=== PATIENT | female | born 1980 | race Caucasian/White ===

== ENCOUNTER → 2018-01-07 | Outpatient (CLI) | payer MEDICAID, OTHER ==
[~2018-01-07] MED LIST: BENA25CA4 PO; HYDR-3583 PO
[2018-01-07 11:06] LABS: AUTOMATED NEUTROPHIL # 4.7 TH/MM3 (1.8-7.7); BASOPHIL # 0.1 TH/MM3 (0-0.2); BASOPHIL % 0.7 % (0.0-2.0); EOSINOPHIL # 0.2 TH/MM3 (0-0.4); EOSINOPHIL % 2.1 % (0.0-4.0); HEMATOCRIT 44.4 % (35.0-46.0); LYMPH % 27.7 % (9.0-44.0); LYMPHOCYTE # 2.1 TH/MM3 (1.0-4.8); MEAN CELL VOLUME 89.3 FL (80.0-100.0); MEAN CORPUSCULAR HEMOGLOBIN 30.2 PG (27.0-34.0); MEAN CORPUSCULAR HGB CONC 33.8 % (32.0-36.0); MEAN PLATELET VOLUME 8.5 FL (7.0-11.0); MONO % 7.9 % (0.0-8.0); MONOCYTE # 0.6 TH/MM3 (0-0.9); NEUT % 61.6 % (16.0-70.0); PLATELET COUNT 336 TH/MM3 (150-450); RED BLOOD COUNT 4.98 MIL/MM3 (4.00-5.30); RED CELL DISTRIBUTION WIDTH 12.7 % (11.6-17.2); WHITE BLOOD COUNT 7.6 TH/MM3 (4.0-11.0)
[2018-01-07 11:12] LABS: PROTHROMBIN TIME - PATIENT 10.5 SEC (9.8-11.6)
[2018-01-07 11:37] LABS: ALBUMIN 3.8 GM/DL (3.4-5.0); ALT (GPT) 34 U/L (10-53); AST (GOT) 22 U/L (15-37); BICARBONATE 30.3 MEQ/L (21.0-32.0); BLOOD UREA NITROGEN 11 MG/DL (7-18); CALCIUM 8.8 MG/DL (8.5-10.1); CHLORIDE 106 MEQ/L (98-107); CREATININE 0.94 MG/DL (0.50-1.00); GLOMERULAR FILTRATION RATE 68 ML/MIN (>89); GLUCOSE,FASTING 71 MG/DL (74-99); SODIUM (NA) 142 MEQ/L (136-145)
[2018-01-07 11:54] LABS: ALKALINE PHOSPHATASE 45 U/L (45-117); TOTAL BILIRUBIN ADULT 0.4 MG/DL (0.2-1.0)
== END ==
LOC: CPRE 09:55
PROVIDERS: ATTEND Urology
DX: Z01.812 Encounter for preprocedural laboratory examination (principal); N28.89 Other specified disorders of kidney and ureter
CPT/HCPCS: 36415; 80053; 85025; 85610; 85730

== ENCOUNTER 2018-01-14 05:56 | Inpatient (IN) | payer MEDICAID ==
[2018-01-14] VITALS (7 sets, daily range): PULSE 73–84; O2SAT 96–100
[~2018-01-14] VITALS: Ht 170.2 cm; Wt 82.7 kg
[2018-01-14] MEDS ORDERED: METOPROLOL TARTRATE 25 MG TAB PO PRN (06:30)
[2018-01-14] MEDS ORDERED: LACTATED RINGER'S 1000 ML IV PRN (06:30)
[2018-01-14] MEDS ORDERED: POVIDONE IODINE 5% (ANTISEPSIS KIT) 4 APPLICATIONS EACH NARE PRN (06:30)
[2018-01-14] MEDS ORDERED: ceFAZolin 1,000 MG/NS 100 ML IV SCH ×2 (06:30)
[2018-01-14] MEDS ORDERED: SODIUM CHLORID 0.9% 500 ML IV PRN (06:30)
[2018-01-14] MEDS ORDERED: CHLORHEXIDINE GLUCONATE 2 % 1 PACK (2 CLOTHS) TOPICAL PRN (06:30)
[2018-01-14] MEDS ORDERED: HYDROmorphone HCL PF 2 MG/ML VIAL ONE (06:40)
[2018-01-14] MEDS ORDERED: ACETAMINOPHEN 1000 MG/100 ML 100 ML IV ONE (06:40)
[2018-01-14] MEDS ORDERED: BACITRACIN TOP OINT 15 GM TUBE ONE (07:17)
[2018-01-14] MEDS ORDERED: MANNITOL INJ 50 ML ONE ×2 (07:17→09:00)
[2018-01-14] MEDS ORDERED: APREPITANT 40 MG CAP ONE (07:51)
[2018-01-14] MEDS ORDERED: LIDOCAINE 2%/EPINEPHrine PF 1:200,000 20ML SDV ONE (08:04)
[2018-01-14] MEDS ORDERED: fentaNYL 2MCG-BUPIV 0.125% INJ 100 ML ONE (09:21)
[2018-01-14] MEDS ORDERED: BUPIVACAINE HCL PF 0.25% 30 ML VIAL ONE (09:36)
[2018-01-14] MEDS ORDERED: DO NOT ADM ANY ANTICOAGULANT DRUGS PRN (11:43)
[2018-01-14] MEDS ORDERED: ACETAMINOPHEN 650 MG/20.3 ML UDC PO PRN (11:45)
[2018-01-14] MEDS ORDERED: MORPHINE SULFATE 4 MG/ML INJ IV PUSH PRN (11:45)
[2018-01-14] MEDS ORDERED: RESP: ALBUTEROL 2.5 MG/3 ML NEB (PRN) NEB (11:45)
[2018-01-14] MEDS: fentaNYL 2MCG-BUPIV 0.125% 100 ML EPIDURAL PRN ×2 (11:50→21:15)
--- NOTE | 2018-01-14 11:51 | PD.OP ---
Operative Report Date of Surgery: January 14, 2018 Preoperative Diagnosis: Left renal mass Postoperative Diagnosis: Same Procedure: Left partial nephrectomy Anesthesia: FRANKLYN Surgeon: Clifton Aleman Research Food Technologist(s): Dr. Kar Lagunas Resident Surgeon: None Operation and Findings: 37-year-old female with findings of a 2 cm left renal mass on an MRI scan recently. The plan for is for the patient undergo left partial nephrectomy. Risk and benefits were discussed preoperatively and she is willing to proceed. Patient was brought to operating identified by myself as Shakira Jiménez. She was placed on the operating table in the left lateral recumbent position with the beanbag placed underneath the patient. All appropriate padding was placed and the table was flexed with the kidney rest elevated. She was secured with tape as well as a safety belt. A Roque catheter was inserted in the beginning procedure. She was then prepped and draped in usual sterile fashion and received preprocedure antibiotics. General endotracheal tube anesthesia was administered. 15 blade was used to make the opening incision extending from the tip of the 11th rib, medial towards the umbilicus. Errol's and Camper's fascia were then entered as well as the transversalis fascia. Care was taken not to enter the peritoneal cavity. The left kidney was palpated after exposing Gerota's fascia and using my index failure I was able to separate the fat and identified the left kidney. Careful dissection using the Bovie cautery was then utilized around the fat surrounding the entire kidney. This was removed circumferentially until all the surrounding attachments around the kidney were free. The hilum where the vessels were was identified and using a right angle forceps this area was then dissected until the artery and vein was freed up. Vessel loops were placed around both artery and vein. 2 renal arteries were identified as well as 2 renal vein. The tumor was identified on the lateral surface of the upper pole and was exophytic in nature. The area around the tumor was then scored using the Bovie cautery. Bulldog clamps were placed on both the artery and the vein. Using a 15 blade and a long handle, the tumor was cut away from the kidney. Gross margins appeared to be negative. This was then sent to pathology. 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 The Bovie cautery was used to fulgurate areas of bleeding within the prior tumor bed site. 4-0 chromic suture was then used to close any areas of bleeding in the bed of the tumor site. Fibular was then placed into the tumor bed site and the kidney was then closed using 3-0 chromic suture in a clamshell fashion. The clamps were all removed after the kidney was closed. Clamp time was from 10:38 to 10:37 AM for a total of 19 minutes. The fossa was then irrigated with normal saline and then a MOE drain was placed next to the kidney. The wound was then closed with a looped PDS in a running fashion and the skin was then closed with chao. The patient was awoken and extubated and transferred recovery in stable condition. Blood loss was 100 cc. She tolerated the procedure well and there were no complications. Clifton Aleman DO January 14, 2018 11:51
[2018-01-14] MEDS: LACTATED RINGER'S 1000 ML INJ 1,000 ML IV SCH ×2 (12:27→21:20)
[2018-01-14] MEDS ORDERED: NO SYSTEM NARCOTICS PRN (12:30)
[2018-01-14] MEDS ORDERED: ePHEDrine/NS 25 MG/5 ML SYRINGE IV PUSH PRN (12:30)
[2018-01-14] MEDS ORDERED: DO NOT ADMINISTER ANTICOAGULANTS PRN (12:30)
[2018-01-14 12:39] LABS: HEMOGLOBIN 13.7 GM/DL (11.6-15.3); MEAN CELL VOLUME 86.9 FL (80.0-100.0); MEAN CORPUSCULAR HEMOGLOBIN 29.7 PG (27.0-34.0); MEAN CORPUSCULAR HGB CONC 34.1 % (32.0-36.0); MEAN PLATELET VOLUME 8.4 FL (7.0-11.0); PLATELET COUNT 276 TH/MM3 (150-450); RED CELL DISTRIBUTION WIDTH 12.6 % (11.6-17.2); WHITE BLOOD COUNT 17.5 TH/MM3 (4.0-11.0)
[2018-01-14 12:59] LABS: BICARBONATE 21.3 MEQ/L (21.0-32.0); CALCIUM 7.9 MG/DL (8.5-10.1); CREATININE 0.94 MG/DL (0.50-1.00)
[2018-01-14] MEDS ORDERED: MIDAZOLAM HCL 2 MG/2 ML VIAL ONE (13:08)
[2018-01-14] MEDS ORDERED: LIDOCAINE HCL 2% 20 ML VIAL ONE (14:05)
[2018-01-15] VITALS (13 sets, daily range): BP systolic 107–121; BP diastolic 58–65; PULSE 74–94; RESP 15–28; TEMP 97.9–99.2; O2SAT 94–96
[2018-01-15] MEDS: fentaNYL 2MCG-BUPIV 0.125% 100 ML EPIDURAL PRN ×3 (03:43→22:01)
[2018-01-15] MEDS: LACTATED RINGER'S 1000 ML INJ 1,000 ML IV SCH ×3 (03:45→23:25)
[2018-01-15 06:38] LABS: HEMATOCRIT 36.6 % (35.0-46.0); HEMOGLOBIN 12.3 GM/DL (11.6-15.3); MEAN CELL VOLUME 88.9 FL (80.0-100.0); MEAN CORPUSCULAR HGB CONC 33.7 % (32.0-36.0); MEAN PLATELET VOLUME 8.7 FL (7.0-11.0); PLATELET COUNT 237 TH/MM3 (150-450); RED BLOOD COUNT 4.11 MIL/MM3 (4.00-5.30); RED CELL DISTRIBUTION WIDTH 12.6 % (11.6-17.2); WHITE BLOOD COUNT 9.8 TH/MM3 (4.0-11.0)
[2018-01-15 07:07] LABS: BICARBONATE 26.4 MEQ/L (21.0-32.0); CREATININE 0.87 MG/DL (0.50-1.00)
--- NOTE | 2018-01-15 08:19 | HHI.PR ---
Subjective Patient symptoms today Pt seen and examined. Pain controlled with epidural. Objective Vital Signs Vital Signs Date Time Temp Pulse Resp B/P (MAP) Pulse Ox O2 Delivery O2 Flow Rate FiO2 01/15/18 07:00 95 Room Air 01/15/18 06:00 78 01/15/18 04:00 82 01/15/18 03:43 19 01/15/18 02:00 80 01/15/18 00:00 80 01/14/18 22:10 96 21 01/14/18 22:00 84 01/14/18 21:15 18 01/14/18 20:00 82 01/14/18 19:00 97 Room Air 01/14/18 18:00 74 01/14/18 16:10 100 Nasal Cannula 2.00 01/14/18 16:00 75 01/14/18 14:00 100 Nasal Cannula 2.00 01/14/18 14:00 73 01/14/18 12:55 98.6 77 14 117/62 (80) 99 Nasal Cannula 2 01/14/18 12:45 78 17 115/55 (75) 100 Nasal Cannula 2 01/14/18 12:30 73 15 111/55 (73) 100 Nasal Cannula 2 01/14/18 12:15 75 19 112/56 (74) 99 Nasal Cannula 2 01/14/18 12:00 74 14 114/56 (75) 99 Nasal Cannula 2 01/14/18 11:50 97.9 94 13 107/54 (71) 97 Nasal Cannula 2 01/14/18 11:50 15 Intake & Output 01/15/18 01/15/18 07:00 19:00 Output Total 1385 ml Balance -1385 ml Output Urine Total 1350 ml Drainage Total 35 ml Result Diagram: 01/15/1858 01/15/1858 Objective Remarks Abd:soft,nt,nd Dressing intact MOE: minimal drainage of 30cc Urine clear Medications and IVs Current Medications Medications (Trade) Dose Ordered Sig/Nathan Route Start Time Stop Time Status Last Admin Lactated Ringer's 1,000 ml @ 30 mls/hr Q24H PRN IV 01/14/18 06:30 01/17/18 06:29 01/14/18 06:15 Sodium Chloride 500 ml @ 30 mls/hr [id number] PRN IV 01/14/18 06:30 01/17/18 06:29 (Lopressor) 25 mg MOLD ENGRAVER PRN PO 01/14/18 06:30 01/17/18 06:29 (Betadine 5% Antisepsis Kit) 1 applic MOLD ENGRAVER PRN EACH NARE 01/14/18 06:30 01/17/18 06:29 01/14/18 06:30 (Chlorhexidine 2% Cloth) 3 pack MOLD ENGRAVER PRN TOPICAL 01/14/18 06:30 01/17/18 06:29 01/14/18 06:15 Cefazolin Sodium 1000 mg/Sodium Chloride 100 ml @ 200 mls/hr Q8H IV 01/14/18 16:00 01/15/18 08:29 01/14/18 23:52 (Tylenol 650 Mg/ 20 ml Liq) 650 mg Q6H PRN PO 01/14/18 11:45 (Percocet 7.5-325 Mg) 1 tab Q4H PRN PO 01/14/18 11:45 Lactated Ringer's 1,000 ml @ 125 mls/hr Q8H IV 01/14/18 11:45 01/14/18 21:20 (Albuterol Neb) 2.5 mg Q6HR NEB PRN NEB 01/14/18 11:45 (Benadryl Inj) 50 mg Q4H PRN IV PUSH 01/14/18 11:45 (Lovenox Inj) 30 mg Q24H SQ 01/15/18 09:00 ([facility] [place] Nursing Information) ALL NURSING DEPARTME... UNSCH PRN .XX 01/14/18 11:43 01/15/18 11:42 ([facility] [place] Nursing Information) No systemic narcotics to be given except... UNSCH PRN .XX 01/14/18 12:30 01/15/18 12:29 ([facility] [place] Nursing Information) DO NOT ADMINISTER ANY ANTICOAGUL... UNSCH PRN .XX 01/14/18 12:30 01/15/18 12:29 Fentanyl/ Bupivacaine HCl 100 ml @ 0 mls/hr TITRATE PRN EPIDURAL 01/14/18 12:30 01/15/18 03:43 (ePHEDrine/NS 25 MG/5 ML SYR) 10 mg UNSCH PRN IV PUSH 01/14/18 12:30 5/23/18 12:29 (Dilaudid Pf Inj) 2 mg Q4H PRN IV 01/14/18 14:30 Assessment and Plan Assessment and Plan Stable POD# 1 s/p Left Partial Nephrectomy Maintain epidural today and will remove tomorrow AM Encourage I/S Clifton Aleman DO January 15, 2018 08:19
[2018-01-15] MEDS ORDERED: ENOXAPARIN SODIUM 30 MG/0.3 ML SYRINGE SQ SCH (09:00)
[2018-01-16] VITALS (12 sets, daily range): BP systolic 115–123; BP diastolic 56–62; PULSE 76–94; RESP 21–24; TEMP 98–98.5; O2SAT 94–97
[2018-01-16] MEDS: fentaNYL 2MCG-BUPIV 0.125% 100 ML EPIDURAL PRN (05:28)
[2018-01-16] MEDS: HYDROmorphone HCL PF 2 MG/ML VIAL IV PRN ×4 (08:21→21:10)
[2018-01-16] MEDS: LACTATED RINGER'S 1000 ML INJ 1,000 ML IV SCH ×2 (08:36→18:36)
--- NOTE | 2018-01-16 08:45 | HHI.PR ---
Subjective Patient symptoms today Pt seen and examined. Feels well. Some pain. Objective Vital Signs Vital Signs Date Time Temp Pulse Resp B/P (MAP) Pulse Ox O2 Delivery O2 Flow Rate FiO2 01/16/18 06:00 84 01/16/18 05:28 22 01/16/18 04:00 82 01/16/18 04:00 98.4 82 21 123/62 (82) 94 01/16/18 02:00 84 01/16/18 00:00 88 01/16/18 00:00 98.5 94 23 119/62 (81) 94 01/15/18 22:01 22 01/15/18 22:00 94 01/15/18 20:00 99.0 90 28 121/65 (83) 94 01/15/18 20:00 92 01/15/18 19:00 94 Room Air 01/15/18 18:00 79 01/15/18 16:00 99.2 80 19 107/58 (74) 96 01/15/18 16:00 80 01/15/18 14:00 79 01/15/18 12:35 17 01/15/18 12:00 97.9 78 15 112/59 (76) 95 01/15/18 12:00 74 01/15/18 10:00 78 Intake & Output 01/16/18 01/16/18 07:00 19:00 Output Total 1125 ml Balance -1125 ml Output Urine Total 1100 ml Drainage Total 25 ml Result Diagram: 01/15/18 0558 01/15/18 0558 Objective Remarks Abd:soft,nt,nd Dressing intact MOE: minimal drainage of 30cc Urine clear 01/16 Abd:soft,nt,nd Dressing intact MOE: minimal drainage of 30cc Urine clear Medications and IVs Current Medications Medications (Trade) Dose Ordered Sig/Nathan Route Start Time Stop Time Status Last Admin Lactated Ringer's 1,000 ml @ 30 mls/hr Q24H PRN IV 01/14/18 06:30 01/17/18 06:29 01/14/18 06:15 Sodium Chloride 500 ml @ 30 mls/hr [id number] PRN IV 01/14/18 06:30 01/17/18 06:29 (Lopressor) 25 mg MANPOWER DEVELOPMENT SPECIALIST PRN PO 01/14/18 06:30 01/17/18 06:29 (Betadine 5% Antisepsis Kit) 1 applic MANPOWER DEVELOPMENT SPECIALIST PRN EACH NARE 01/14/18 06:30 01/17/18 06:29 01/14/18 06:30 (Chlorhexidine 2% Cloth) 3 pack MANPOWER DEVELOPMENT SPECIALIST PRN TOPICAL 01/14/18 06:30 01/17/18 06:29 01/14/18 06:15 (Tylenol 650 Mg/ 20 ml Liq) 650 mg Q6H PRN PO 01/14/18 11:45 (Percocet 7.5-325 Mg) 1 tab Q4H PRN PO 01/14/18 11:45 Lactated Ringer's 1,000 ml @ 100 mls/hr Q10H IV 01/14/18 11:45 01/15/18 23:25 (Albuterol Neb) 2.5 mg Q6HR NEB PRN NEB 01/14/18 11:45 (Benadryl Inj) 50 mg Q4H PRN IV PUSH 01/14/18 11:45 (Lovenox Inj) 30 mg Q24H SQ 01/15/18 09:00 Future Hold 01/15/18 08:18 (Dilaudid Pf Inj) 2 mg Q4H PRN IV 01/14/18 14:30 01/16/18 08:21 Fentanyl/ Bupivacaine/ Sodium Chlor 150 ml @ 0 mls/hr TITRATE PRN EPIDURAL 01/15/18 11:30 01/16/18 05:28 Assessment and Plan Assessment and Plan Stable POD# 1 s/p Left Partial Nephrectomy Maintain epidural today and will remove tomorrow AM Encourage I/S 01/16 Stable POD# 2 s/p Left Partial Nephrectomy Anesthesia to remove epidural catheter today OOB Encourage I/S Clifton Aleman DO January 16, 2018 08:45
[2018-01-16] MEDS: oxyCODONE/ACETAMINOPHEN 7.5 MG/325 MG TAB PO PRN ×4 (10:58→23:48)
[2018-01-16] MEDS: diphenhydrAMINE HCL 50 MG/ML VIAL IV PUSH PRN (21:09)
[2018-01-17] VITALS (9 sets, daily range): BP systolic 110–127; BP diastolic 55–69; PULSE 75–98; RESP 16–20; TEMP 97.9–98.9; O2SAT 95–97
[2018-01-17] MEDS: HYDROmorphone HCL PF 2 MG/ML VIAL IV PRN ×5 (01:09→23:21)
[2018-01-17] MEDS: diphenhydrAMINE HCL 50 MG/ML VIAL IV PUSH PRN ×2 (01:09→23:21)
[2018-01-17] MEDS: LACTATED RINGER'S 1000 ML INJ 1,000 ML IV SCH ×3 (03:16→21:00)
[2018-01-17] MEDS: oxyCODONE/ACETAMINOPHEN 7.5 MG/325 MG TAB PO PRN ×3 (03:57→19:56)
--- NOTE | 2018-01-17 09:59 | HHI.PR ---
Subjective Patient symptoms today Pt seen and examined. c/o incision pain. Objective Vital Signs Vital Signs Date Time Temp Pulse Resp B/P (MAP) Pulse Ox O2 Delivery O2 Flow Rate FiO2 01/17/18 08:00 85 01/17/18 08:00 98.3 87 20 127/59 (81) 96 01/17/18 07:00 97 Nasal Cannula 2.00 01/17/18 06:00 81 01/17/18 04:00 76 01/17/18 04:00 98.1 75 16 118/66 (83) 97 01/17/18 02:00 77 01/17/18 00:00 81 01/17/18 00:00 97.9 86 17 110/69 (83) 96 01/16/18 22:00 76 01/16/18 20:21 18 01/16/18 20:00 98.0 84 24 115/56 (75) 97 01/16/18 20:00 87 01/16/18 20:00 Room Air 01/16/18 18:00 84 01/16/18 17:30 18 01/16/18 16:00 82 01/16/18 15:00 84 01/16/18 12:00 82 01/16/18 10:00 84 Intake & Output 01/17/18 01/17/18 07:00 19:00 Intake Total 620 ml Output Total 2325 ml Balance -1705 ml Intake Oral 620 ml Output Urine Total 2300 ml Drainage Total 25 ml # Bowel Movements 0 Result Diagram: 01/15/18 0558 01/15/18 0558 Objective Remarks Abd:soft,nt,nd Dressing intact MOE: minimal drainage of 30cc Urine clear 01/16 Abd:soft,nt,nd Dressing intact MOE: minimal drainage of 30cc Urine clear 01/17 Abd:soft,distended, incisional tenderness Roque: clear urine MOE: minimal drainage Medications and IVs Current Medications Medications (Trade) Dose Ordered Sig/Nathan Route Start Time Stop Time Status Last Admin (Tylenol 650 Mg/ 20 ml Liq) 650 mg Q6H PRN PO 01/14/18 11:45 (Percocet 7.5-325 Mg) 1 tab Q4H PRN PO 01/14/18 11:45 01/17/18 08:23 Lactated Ringer's 1,000 ml @ 100 mls/hr Q10H IV 01/14/18 11:45 01/17/18 03:16 (Albuterol Neb) 2.5 mg Q6HR NEB PRN NEB 01/14/18 11:45 (Benadryl Inj) 50 mg Q4H PRN IV PUSH 01/14/18 11:45 01/17/18 01:09 (Lovenox Inj) 30 mg Q24H SQ 01/15/18 09:00 Future Hold 01/15/18 08:18 (Dilaudid Pf Inj) 2 mg Q4H PRN IV 01/14/18 14:30 01/17/18 06:17 Fentanyl/ Bupivacaine/ Sodium Chlor 150 ml @ 0 mls/hr TITRATE PRN EPIDURAL 01/15/18 11:30 01/16/18 05:28 Assessment and Plan Assessment and Plan Stable POD# 1 s/p Left Partial Nephrectomy Maintain epidural today and will remove tomorrow AM Encourage I/S 01/16 Stable POD# 2 s/p Left Partial Nephrectomy Anesthesia to remove epidural catheter today OOB Encourage I/S 01/17 Stable POD#3 Left PN Path: RCC with neg. margins OOB/Ambulate Clifton Aleman DO January 17, 2018 09:58
[2018-01-18] VITALS: BP 117/56; PULSE 82; PULSE 84; RESP 17; TEMP 98; O2SAT 95
[2018-01-18] MEDS: oxyCODONE/ACETAMINOPHEN 7.5 MG/325 MG TAB PO PRN ×2 (03:55→16:49)
[2018-01-18 04:00] VITALS: BP 120/57; PULSE 80; PULSE 88; RESP 20; TEMP 98.4; O2SAT 97
[2018-01-18 08:00] VITALS: BP 122/58; PULSE 66; RESP 18; TEMP 98.1; O2SAT 92
[2018-01-18] MEDS: HYDROmorphone HCL PF 2 MG/ML VIAL IV PRN ×3 (08:00→20:55)
[2018-01-18] MEDS: LACTATED RINGER'S 1000 ML INJ 1,000 ML IV SCH ×2 (10:36→20:36)
--- NOTE | 2018-01-18 10:43 | HHI.PR ---
Subjective Patient symptoms today Pt seen and examined. Feels better. Pain improved. Objective Vital Signs Vital Signs Date Time Temp Pulse Resp B/P (MAP) Pulse Ox O2 Delivery O2 Flow Rate FiO2 01/18/18 08:00 98.1 66 18 122/58 (79) 92 01/18/18 04:00 80 01/18/18 04:00 98.4 88 20 120/57 (78) 97 01/18/18 00:00 98.0 82 17 117/56 (76) 95 01/18/18 00:00 84 01/17/18 20:00 Room Air 01/17/18 20:00 85 01/17/18 20:00 98.9 88 20 117/55 (75) 95 01/17/18 16:00 98.4 90 18 117/60 (79) 96 01/17/18 16:00 92 01/17/18 12:00 98 01/17/18 12:00 98.2 92 20 121/59 (79) 96 Intake & Output 01/18/18 01/18/18 07:00 19:00 Intake Total 2337 ml 150 ml Output Total 0 ml Balance 2337 ml 150 ml Intake Oral 480 ml IV Total 1857 ml 150 ml Drainage Total 0 ml # Voids 5 # Bowel Movements 0 Result Diagram: 01/15/1855701/15/18557 Objective Remarks Abd:soft,nt,nd Dressing intact MOE: minimal drainage of 30cc Urine clear 01/16 Abd:soft,nt,nd Dressing intact MOE: minimal drainage of 30cc Urine clear 01/17 Abd:soft,distended, incisional tenderness Roque: clear urine MOE: minimal drainage 01/18 Abd:soft,nt,nd MOE removed Voiding well Medications and IVs Current Medications Medications (Trade) Dose Ordered Sig/Nathan Route Start Time Stop Time Status Last Admin (Tylenol 650 Mg/ 20 ml Liq) 650 mg Q6H PRN PO 01/14/18 11:45 01/17/18 11:25 (Percocet 7.5-325 Mg) 1 tab Q4H PRN PO 01/14/18 11:45 01/18/18 03:55 Lactated Ringer's 1,000 ml @ 100 mls/hr Q10H IV 01/14/18 11:45 01/17/18 21:00 (Albuterol Neb) 2.5 mg Q6HR NEB PRN NEB 01/14/18 11:45 (Benadryl Inj) 50 mg Q4H PRN IV PUSH 01/14/18 11:45 01/17/18 23:21 (Lovenox Inj) 30 mg Q24H SQ 01/15/18 09:00 Future Hold 01/15/18 08:18 (Dilaudid Pf Inj) 2 mg Q4H PRN IV 01/14/18 14:30 01/18/18 08:00 Fentanyl/ Bupivacaine/ Sodium Chlor 150 ml @ 0 mls/hr TITRATE PRN EPIDURAL 01/15/18 11:30 01/16/18 05:28 Assessment and Plan Assessment and Plan Stable POD# 1 s/p Left Partial Nephrectomy Maintain epidural today and will remove tomorrow AM Encourage I/S 01/16 Stable POD# 2 s/p Left Partial Nephrectomy Anesthesia to remove epidural catheter today OOB Encourage I/S 01/17 Stable POD#3 Left PN Path: RCC with neg. margins OOB/Ambulate 01/18 Stable POD#4 s/p Left partial nephrectomy OOB MOE out D/C home in AM Clifton Aleman DO January 18, 2018 10:43
[2018-01-18 12:00] VITALS: BP 112/57; PULSE 89; RESP 18; TEMP 98.8; O2SAT 92
[2018-01-18 16:00] VITALS: BP 129/59; PULSE 91; RESP 18; TEMP 98.7; O2SAT 94
[2018-01-18] MEDS ORDERED: BISACODYL 10 MG SUPP RECTAL PRN (17:45)
[2018-01-18] MEDS: DOCUSATE SODIUM 100 MG CAP PO SCH ×2 (17:55→20:43)
[2018-01-18 20:00] VITALS: BP 124/66; PULSE 86; RESP 16; TEMP 98.4; O2SAT 95
[2018-01-18] MEDS: diphenhydrAMINE HCL 50 MG/ML VIAL IV PUSH PRN (20:55)
[2018-01-19] VITALS: BP 107/55; PULSE 81; RESP 16; TEMP 98.3; O2SAT 96
[2018-01-19] MEDS: HYDROmorphone HCL PF 2 MG/ML VIAL IV PRN (02:27)
[2018-01-19] MEDS: LACTATED RINGER'S 1000 ML INJ 1,000 ML IV SCH (06:36)
[2018-01-19] MEDS: oxyCODONE/ACETAMINOPHEN 7.5 MG/325 MG TAB PO PRN (07:55)
[2018-01-19] MEDS: DOCUSATE SODIUM 100 MG CAP PO SCH (07:56)
[2018-01-19 08:00] VITALS: BP 131/62; PULSE 83; RESP 18; TEMP 98.2; O2SAT 94
[2018-01-19 08:55] VITALS: RESP 18
[2018-01-19] MEDS: diphenhydrAMINE HCL 50 MG/ML VIAL IV PUSH PRN (09:02)
== END 2018-01-19 12:12 | disposition home or self-care (01) | DRG 658 ==
LOC: HSDI 05:56 → N03A 13:01 → N03B 01-18 06:13
PROVIDERS: ADMIT Urology; ATTEND Urology
PROC: 0TB10ZZ Excision of Left Kidney, Open Approach (ICD-10-PCS; principal; 2018-01-14 08:01)
DX: C64.2 Malignant neoplasm of left kidney, except renal pelvis (principal); F17.210 Nicotine dependence, cigarettes, uncomplicated
CPT/HCPCS: 80048; 85027; 86850; 86900; 86901; 86920; 88307; 88331; 94150; J0131; J0690; J1170; J1200; J1650; J2150; J2250; J2270; J7120; J8501